=== PATIENT | male | born 1950 | race Caucasian/White ===

== ENCOUNTER 2018-10-13 08:10 | Emergency (ER) | payer MEDICARE, OTHER ==
[2018-10-13 09:13] LABS: Absolute Lymphocytes (CBC) 1.9 K/uL (0.7-4.9); Absolute Monocytes 1.1 K/uL (0.1-1.3); Absolute Neutrophil 10.8 K/uL (1.8-8.0); Basophils % 0.8 % (0-1.3); Eosinophils % 0.7 % (0-4.4); Hematocrit 42.1 % (39.6-49.0); Lymphocytes % 13.4 % (15.3-44.8); MPV 9.2 fL (7.6-11.3); Monocytes % 8.1 % (3.3-12.3); RBC Red Blood Cell Count 4.97 M/uL (4.33-5.43)
[2018-10-13] MEDS ORDERED: ALBUTEROL 2.5 MG/3 ML NEB SOL ONE (09:18)
[2018-10-13] MEDS ORDERED: METHYLPREDNISOLONE 125 MG INJ ONE (09:18)
[2018-10-13] MEDS ORDERED: KETOROLAC 30 MG/ML INJ ONE (09:18)
[2018-10-13 09:31] LABS: BUN Blood Urea Nitrogen 9 mg/dL (7-18); Bicarbonate 26 mmol/L (21-32); Glucose Level 84 mg/dL (74-106); Sodium Level 141 mmol/L (136-145); Troponin (Emerg Dept Use Only) < 0.02 ng/mL (0.0-0.045)
--- NOTE | 2018-10-13 09:42 | RAD REPORT ---
EXAM DESCRIPTION: Lilly Single View10/13/2018 9:27 am CLINICAL HISTORY: Shortness of breath COMPARISON: none FINDINGS: Lungs are hyperaerated. The lungs appear clear of acute infiltrate. The heart is normal size IMPRESSION: No acute abnormalities displayed
--- NOTE | 2018-10-13 10:22 | EDPHYS ---
Physician Documentation [facility] Name: Patel Villegas Age: 67 yrs Sex: Male : 1950 Arrival Date: 10/13/2018 Time: 08:18 Bed 7 Private MD: None, None ED Physician Juan Reagan HPI: 10/13 09:00 This 67 yrs old Male presents to ER via Ambulatory with complaints of rn Breathing Difficulty, Back Pain. 09:00 The patient has shortness of breath at rest. Onset: The symptoms/episode began/occurred rn this morning. Duration: The symptoms are continuous. The patient's shortness of breath is aggravated by coughing. Severity of symptoms: At their worst the symptoms were mild in the emergency department the symptoms are unchanged. The patient has experienced similar episodes in the past. Reports has asbestosis, + cough and chills with right painful lung since this morning, states has happened multiple times in past with lung infections, reports has only been admitted once for this and a lot worse that time. . Historical: - Allergies: 08:30 PENICILLINS; aa5 - Immunization history:: Adult Immunizations unknown. - Ebola Screening: : No symptoms or risks identified at this time. - Family history:: not pertinent. - Social history:: Smoking status: unknown. - Hospitalizations: : No recent hospitalization is reported. ROS: 09:00 Constitutional: + chills Eyes: Negative for injury, pain, redness, and discharge, Neck: rn Negative for injury, pain, and swelling, Cardiovascular: Negative for chest pain, palpitations, and edema, Respiratory: + sob and cough Abdomen/GI: Negative for abdominal pain, nausea, vomiting, diarrhea, and constipation, MS/Extremity: Negative for injury and deformity, Skin: Negative for injury, rash, and discoloration, Neuro: Negative for headache, weakness, numbness, tingling, and seizure. Exam: 09:00 Constitutional: This is a well developed, well nourished patient who is awake, alert, rn and in no acute distress. Head/Face: Normocephalic, atraumatic. Eyes: Pupils equal round and reactive to light, extra-ocular motions intact. Lids and lashes normal. Conjunctiva and sclera are non-icteric and not injected. Cornea within normal limits. Periorbital areas with no swelling, redness, or edema. ENT: MMM, no stridor Cardiovascular: Regular rate and rhythm, No pulse deficits. Respiratory: Clear to auscultation with diminished breath sounds bilateral bases, no retractions Abdomen/GI: soft, non-tender Skin: Warm, dry with normal turgor. Normal color with no rashes, no lesions, and no evidence of cellulitis. MS/ Extremity: Pulses equal, no cyanosis. Neurovascular intact. Full, normal range of motion. Equal circumference. Neuro: Awake and alert, GCS 15, oriented to person, place, time, and situation. Cranial nerves II-XII grossly intact. Motor strength 5/5 in all extremities. Sensory grossly intact. Cerebellar exam normal. Vital Signs: 08:31 BP 131 / 78; Pulse 56; Resp 22 S; Temp 98.3(O); Pulse Ox 100% on R/A; aa5 09:24 BP 120 / 72; Pulse 51; Resp 22; Pulse Ox 97% on Nebulizer Mask; ph 11:01 BP 122 / 68; Pulse 52; Resp 20; Temp 98.0; Pulse Ox 99% on R/A; ph MDM: 08:35 Patient medically screened. rn 10:20 Differential diagnosis: Bronchitis Chronic Obstructive Pulmonary Disease Myocardial rn Infarction pneumonia, Pneumothorax pulmonary edema. Data reviewed: vital signs, nurses notes, lab test result(s), EKG, radiologic studies, plain films, and as a result, I will discharge patient. Counseling: I had a detailed discussion with the patient and/or guardian regarding: the historical points, exam findings, and any diagnostic results supporting the discharge/admit diagnosis, lab results, radiology results, the need for outpatient follow up, to return to the emergency department if symptoms worsen or persist or if there are any questions or concerns that arise at home. Special discussion: I discussed with the patient/guardian in detail that at this point there is no indication for admission to the hospital. It is understood, however, that if the symptoms persist or worsen the patient needs to return immediately for re-evaluation. Based on the history and exam findings, there is no indication for further emergent testing or inpatient evaluation. I discussed with the patient/guardian the need to see the primary care provider for further evaluation of the symptoms. ED course: Oxygen 98%, will dc home with pcp f/u, abx, and pain meds. Likely early pneumonia.. 02/05 08:41 Order name: Blood Culture Adult (2) rn 10/13 08:41 Order name: BMP; Complete Time: 09:45 rn 10/13 08:41 Order name: XRAY CXR (1 view); Complete Time: 09:45 rn 10/13 08:41 Order name: CBC with Diff; Complete Time: 09:45 rn 10/13 08:41 Order name: Troponin (emerg Dept Use Only); Complete Time: 09:45 rn 10/13 08:41 Order name: Flu; Complete Time: 09:45 rn 10/13 08:41 Order name: EKG; Complete Time: 08:42 rn 10/13 08:41 Order name: Cardiac monitoring; Complete Time: 09:03 rn 10/13 08:41 Order name: EKG - Nurse/Tech; Complete Time: 17:40 rn 10/13 08:41 Order name: IV Saline Lock; Complete Time: 09:03 rn 10/13 08:41 Order name: Labs collected and sent; Complete Time: 09:04 rn 10/13 08:41 Order name: O2 Per Protocol; Complete Time: 09:04 rn 10/13 08:41 Order name: O2 Sat Monitoring; Complete Time: 09:04 rn Administered Medications: 09:17 Drug: TORadol 30 mg Route: IVP; Site: right forearm; ph 11:00 Follow up: Response: No adverse reaction; Pain is decreased ph 09:18 Drug: SOLU-Medrol 125 mg Route: IVP; Site: right forearm; ph 11:00 Follow up: Response: No adverse reaction ph 09:18 Drug: Albuterol 2.5 mg Route: Inhalation; ph 11:00 Follow up: Response: No adverse reaction ph Disposition: 10/13/18 10:21 Discharged to Home. Impression: Pleurisy, Bronchitis, not specified as acute or chronic. - Condition is Stable. - Discharge Instructions: Acute Bronchitis, Adult, Pleurisy, Cough, Adult. - Prescriptions for Prednisone 20 mg Oral Tablet - take 3 tablet by ORAL route once daily for 5 days; 15 tablet. Zithromax Z- Lawrence 250 mg Oral Tablet - take 1 tablet by ORAL route as directed for 5 days Day 1 - take two (2) tablets one time. Day 2, 3, 4 , 5 take one (1) tablet once daily.; 6 tablet. Tramadol 50 mg Oral Tablet - take 1 tablet by ORAL route every 8 hours as needed; 15 tablet. - Medication Reconciliation Form, Thank You Letter, Antibiotic Education, Prescription Opioid Use form. - Follow up: Private Physician; When: As needed; Reason: Recheck today's complaints, Re-evaluation by your physician. - Problem is new. - Symptoms have improved. Signatures: Dispatcher [employer] EDMS Juan Reagan MD MD rn Calderon, Audri, RN RN aa5 Tamiko Reyes RN RN ph Corrections: (The following items were deleted from the chart) 11:03 10:21 10/13/2018 10:21 Discharged to Home. Impression: Pleurisy; Bronchitis, not ph specified as acute or chronic. Condition is Stable. Forms are Medication Reconciliation Form, Thank You Letter, Antibiotic Education, Prescription Opioid Use. Follow up: Private Physician; When: As needed; Reason: Recheck today's complaints, Re-evaluation by your physician. Problem is new. Symptoms have improved. rn
--- NOTE | 2018-10-13 10:22 | ER ---
Nurse's Notes [facility] Name: Patel Villegas Age: 67 yrs Sex: Male : 1950 Arrival Date: 10/13/2018 Time: 08:18 Bed 7 Private MD: None, None Diagnosis: Pleurisy;Bronchitis, not specified as acute or chronic Presentation: 10/13 08:30 Presenting complaint: Patient states: SOB since today, chronic cough, and c/o of pain aa5 to "right lung". Pt states "I have asbestosis so I always have a cough but today I am more short of breath". 08:30 Transition of care: patient was not received from another setting of care. Onset of aa5 symptoms was October 13, 2018. Risk Assessment: Do you want to hurt yourself or someone else? Patient reports no desire to harm self or others. Initial Sepsis Screen: Does the patient meet any 2 criteria? No. Patient's initial sepsis screen is negative. Does the patient have a suspected source of infection? No. Patient's initial sepsis screen is negative. Care prior to arrival: None. 08:30 Method Of Arrival: Ambulatory aa5 08:30 Acuity: MEGAN 3 aa5 Historical: - Allergies: 08:30 PENICILLINS; aa5 - Immunization history:: Adult Immunizations unknown. - Ebola Screening: : No symptoms or risks identified at this time. - Family history:: not pertinent. - Social history:: Smoking status: unknown. - Hospitalizations: : No recent hospitalization is reported. Screenin:19 Abuse screen: Denies threats or abuse. Denies injuries from another. Nutritional ph screening: No deficits noted. Tuberculosis screening: No symptoms or risk factors identified. Fall Risk None identified. Assessment: 09:19 General: Appears in no apparent distress. uncomfortable, slender, well groomed, ph Behavior is calm, cooperative, appropriate for age, Reports chills for 1-2 days. Pain: Complains of pain in anterior aspect of right upper chest Pain radiates to back Quality of pain is described as sharp, stabbing, Aggravated by repositioning, Noted to be grimacing. Neuro: Level of Consciousness is awake, alert, obeys commands, Oriented to person, place, time, situation. Cardiovascular: Reports chest pain, shortness of breath, Capillary refill < 3 seconds in bilateral fingers Patient's skin is warm and dry. Rhythm is sinus bradycardia. Respiratory: Reports shortness of breath at rest Airway is patent Respiratory effort is even, unlabored, Respiratory pattern is regular, symmetrical, Breath sounds are coarse bilaterally. GI: Patient currently denies abdominal pain, diarrhea, nausea, vomiting. Derm: Skin is intact, is healthy with good turgor, Skin is pink, warm \\T\\ dry. Musculoskeletal: Circulation, motion, and sensation intact. Range of motion: intact in all extremities. 10:00 Reassessment: Patient appears in no apparent distress at this time. Patient and/or ph family updated on plan of care and expected duration. Pain level reassessed. Patient is alert, oriented x 3, equal unlabored respirations, skin warm/dry/pink. 11:00 Reassessment: Patient appears in no apparent distress at this time. Patient and/or ph family updated on plan of care and expected duration. Pain level reassessed. Patient is alert, oriented x 3, equal unlabored respirations, skin warm/dry/pink. Pt prescribed pain medication and antibiotics and d/c home Patient states feeling better. Vital Signs: 08:31 BP 131 / 78; Pulse 56; Resp 22 S; Temp 98.3(O); Pulse Ox 100% on R/A; aa5 09:24 BP 120 / 72; Pulse 51; Resp 22; Pulse Ox 97% on Nebulizer Mask; ph 11:01 BP 122 / 68; Pulse 52; Resp 20; Temp 98.0; Pulse Ox 99% on R/A; ph ED Course: 08:18 Patient arrived in ED. sb2 08:19 None, None is Private Physician. sb2 08:30 Arm band placed on Patient placed in an exam room, on a stretcher. aa5 08:30 Patient has correct armband on for positive identification. Placed in gown. Bed in low ph position. Call light in reach. Side rails up X 1. monitoring coordinator on. Pulse ox on. NIBP on. Warm blanket given. 08:35 Juan Reagan MD is Attending Physician. rn 08:35 Triage completed. aa5 08:44 Tamiko Reyes, SANDIE is Primary Nurse. ph 08:50 Inserted saline lock: 20 gauge forearm, using aseptic technique. Blood collected. ph 08:51 EKG done, by polysomnographic tech. reviewed by Juan Reagan MD. at1 09:10 Initial lab(s) drawn, by me, sent to lab. First set of blood cultures drawn by me, ph Second set of blood cultures drawn by me, Flu and/or RSV swab sent to lab. 09:27 XRAY CXR (1 view) In Process Unspecified. EDMS 11:01 No provider procedures requiring assistance completed. IV discontinued, intact, ph bleeding controlled, No redness/swelling at site. Pressure dressing applied. Administered Medications: 09:17 Drug: TORadol 30 mg Route: IVP; Site: right forearm; ph 11:00 Follow up: Response: No adverse reaction; Pain is decreased ph 09:18 Drug: SOLU-Medrol 125 mg Route: IVP; Site: right forearm; ph 11:00 Follow up: Response: No adverse reaction ph 09:18 Drug: Albuterol 2.5 mg Route: Inhalation; ph 11:00 Follow up: Response: No adverse reaction ph Outcome: 10:21 Discharge ordered by . rn 11:02 Discharged to home ambulatory. ph 11:02 Condition: good 11:02 Discharge instructions given to patient, Instructed on discharge instructions, follow up and referral plans. medication usage, Demonstrated understanding of instructions, follow-up care, medications, Prescriptions given X 3. 11:03 Patient left the ED. ph Signatures: Dispatcher [employer] EDTX Juan Reagan MD MD rn Calderon, Audri RN RN aa5 Nancy Solis, nurse plastics EKG Tat1 Tamiko Reyes RN RN ph Charisma Christian sb2 Corrections: (The following items were deleted from the chart) 08:37 08:30 Presenting complaint: Patient states: SOB since today, chronic cough, and c/o of aa5 pain to "right lung" aa5
--- NOTE | 2018-10-13 12:19 | EKG ---
Test Date: 2018-09-12 Test Time: 08:45:25 Electronic Technician: DAVID MEASUREMENT RESULTS: Intervals: Rate: 56 NC: 154 QRSD: 90 QT: 406 QTc: 391 Randolph: P: 60 NC: 154 QRS: 28 T: 60 INTERPRETIVE STATEMENTS: Sinus bradycardia Otherwise normal ECG No previous ECG available for comparison Electronically Signed On 10-13-18 12:18:45 VICE PRESIDENT OF SOFTWARE DEVELOPMENT by Jose Pérez
== END 2018-10-13 11:03 | disposition home or self-care (01) ==
LOC: ER 08:10
DX: J40 Bronchitis, not specified as acute or chronic (principal); R09.1 Pleurisy; Z88.0 Allergy status to penicillin
CPT/HCPCS: 36415; 71045; 80048; 84484; 85025; 87040 ×2; 87804 ×2; 93005; 96374; 96375; 99285; J2930

== ENCOUNTER 2018-12-03 10:57 | Emergency (ER) | payer MEDICARE ==
--- OUTSIDE RECORDS SUMMARY | 2018-12-03 11:02 | XMS REPORT ---
:1950 [facility] Address [address] [place] [address] Dr. Ponce [address] [place] [id number] Care Team Providers Name Role Phone Unavailable Unavailable Unavailable Problems This patient has no known problems. Allergies, Adverse Reactions, Alerts This patient has no known allergies or adverse reactions. Medications This patient has no known medications.
--- NOTE | 2018-12-03 11:52 | RAD REPORT ---
EXAM DESCRIPTION: Lilly Single View12/03/2018 11:45 am CLINICAL HISTORY: Chest pain COMPARISON: October 2018 FINDINGS: The lungs are hyperaerated. The lungs appear clear of acute infiltrate. The heart is normal size IMPRESSION: No acute abnormalities displayed
[2018-12-03] MEDS ORDERED: ALBUTEROL 2.5 MG/3 ML NEB SOL ONE (11:55)
[2018-12-03] MEDS ORDERED: predniSONE 20 MG TAB ONE (11:55)
[2018-12-03] MEDS ORDERED: IPRATROPIUM BROM 0.5MG/2.5ML ONE (11:55)
[2018-12-03 12:21] LABS: Absolute Lymphocytes (CBC) 2.2 K/uL (0.7-4.9); Absolute Monocytes 0.7 K/uL (0.1-1.3); Absolute Neutrophil 6.9 K/uL (1.8-8.0); Basophils % 0.7 % (0-1.3); Eosinophils % 0.5 % (0-4.4); Hematocrit 41.2 % (39.6-49.0); MPV 9.9 fL (7.6-11.3); Monocytes % 7.4 % (3.3-12.3); RBC Red Blood Cell Count 4.87 M/uL (4.33-5.43)
[2018-12-03 12:22] LABS: Protime INR 1.1
[2018-12-03 12:48] LABS: ALT/SGPT 32 U/L (12-78); AST/SGOT 35 U/L (15-37); Albumin 3.9 g/dL (3.4-5.0); Alkaline Phosphatase 93 U/L (45-117); BUN Blood Urea Nitrogen 15 mg/dL (7-18); Bicarbonate 25 mmol/L (21-32); Bilirubin Direct 0.2 mg/dL (0-0.2); Bilirubin Total 0.7 mg/dL (0.2-1.0); Glucose Level 98 mg/dL (74-106); Magnesium 2.1 mg/dL (1.8-2.4); NT PRO-BNP 55 pg/mL (<125); Potassium 3.9 mmol/L (3.5-5.1); Protein, Total 6.8 g/dL (6.4-8.2); Sodium Level 140 mmol/L (136-145); Troponin (Emerg Dept Use Only) < 0.02 ng/mL (0.0-0.045)
--- NOTE | 2018-12-03 13:12 | EDPHYS ---
Physician Documentation [facility] Name: Patel Villegas Age: 68 yrs Sex: Male : 1950 Arrival Date: 12/03/2018 Time: 10:58 Bed 15 Private MD: ED Physician Celio Burnett HPI: 12/03 11:28 This 68 yrs old Male presents to ER via EMS with complaints of Shortness Of pm1 Breath. 11:28 The patient has shortness of breath. Onset: The symptoms/episode began/occurred 3 pm1 year(s) ago, and became worse 3 day(s) ago. Duration: The symptoms are chronic, for 3 year(s). The patient's shortness of breath is aggravated by nothing, is alleviated by nebulizer treatment. Associated signs and symptoms: Pertinent positives: productive cough, lower anterior and posterior rib pain. Severity of symptoms: in the emergency department the symptoms are worse. The patient has experienced similar episodes in the past, chronically. Historical: - Allergies: 11:08 PENICILLINS; ph - PMHx: 11:08 asbestosis; Hernia; ph - PSHx: 11:08 Hernia repair; ph - Immunization history:: Adult Immunizations unknown. - Social history:: Smoking status: Patient/guardian denies using tobacco. - Ebola Screening: : No symptoms or risks identified at this time. ROS: 11:28 Constitutional: Negative for fever, chills, and weight loss, Eyes: Negative for injury, pm1 pain, redness, and discharge, ENT: Negative for injury, pain, and discharge, Neck: Negative for injury, pain, and swelling, Cardiovascular: Negative for chest pain, palpitations, and edema. 11:28 Abdomen/GI: Negative for abdominal pain, nausea, vomiting, diarrhea, and constipation, Back: Negative for injury and pain, : Negative for injury, bleeding, discharge, and swelling, MS/Extremity: Negative for injury and deformity, Skin: Negative for injury, rash, and discoloration, Neuro: Negative for headache, weakness, numbness, tingling, and seizure. 11:28 Respiratory: Positive for cough, shortness of breath. Exam: 11:27 Sinus bradycardia 55 BPM pm1 11:28 Constitutional: This is a well developed, well nourished patient who is awake, alert, pm1 and in no acute distress. Head/Face: Normocephalic, atraumatic. Eyes: Pupils equal round and reactive to light, extra-ocular motions intact. Lids and lashes normal. Conjunctiva and sclera are non-icteric and not injected. Cornea within normal limits. Periorbital areas with no swelling, redness, or edema. ENT: Nares patent. No nasal discharge, no septal abnormalities noted. Tympanic membranes are normal and external auditory canals are clear. Oropharynx with no redness, swelling, or masses, exudates, or evidence of obstruction, uvula midline. Mucous membranes moist. Neck: Trachea midline, no thyromegaly or masses palpated, and no cervical lymphadenopathy. Supple, full range of motion without nuchal rigidity, or vertebral point tenderness. No Meningismus. Chest/axilla: Normal chest wall appearance and motion. Nontender with no deformity. No lesions are appreciated. Cardiovascular: Regular rate and rhythm with a normal S1 and S2. No gallops, murmurs, or rubs. Normal PMI, no JVD. No pulse deficits. Respiratory: Lungs have equal breath sounds bilaterally, clear to auscultation and percussion. No rales, rhonchi or wheezes noted. No increased work of breathing, no retractions or nasal flaring. Abdomen/GI: Soft, non-tender, with normal bowel sounds. No distension or tympany. No guarding or rebound. No evidence of tenderness throughout. Back: No spinal tenderness. No costovertebral tenderness. Full range of motion. Skin: Warm, dry with normal turgor. Normal color with no rashes, no lesions, and no evidence of cellulitis. MS/ Extremity: Pulses equal, no cyanosis. Neurovascular intact. Full, normal range of motion. 11:28 Neuro: Orientation: is normal, Motor: is normal, moves all fours, Sensation: is normal, no obvious gross deficits. Vital Signs: 11:07 BP 120 / 83; Pulse 58; Resp 20; Temp 97.8; Pulse Ox 100% on R/A; Weight 68.04 kg; ph Height 5 ft. 9 in. (175.26 cm); Pain 8/10; 12:07 BP 116 / 74; Pulse 66; Resp 19; Pulse Ox 100% on R/A; rb1 13:00 BP 126 / 73; Pulse 70; Resp 19; Pulse Ox 95% on R/A; rb1 14:00 BP 112 / 77; Pulse 72; Resp 17; Pulse Ox 99% on R/A; Pain 4/10; rb1 11:07 Body Mass Index 22.15 (68.04 kg, 175.26 cm) ph MDM: 11:14 Patient medically screened. pm1 11:28 Data reviewed: vital signs. Data interpreted: Pulse oximetry: on room air is 100 %. pm1 Interpretation: normal. 13:10 Counseling: I had a detailed discussion with the patient and/or guardian regarding: the pm1 historical points, exam findings, and any diagnostic results supporting the discharge/admit diagnosis, lab results, radiology results, the need for outpatient follow up, for definitive care, a literary writer, to return to the emergency department if symptoms worsen or persist or if there are any questions or concerns that arise at home. 12/03 11:15 Order name: Basic Metabolic Panel; Complete Time: 13:10 pm12/03 11:15 Order name: CBC with Diff; Complete Time: 12:33 pm12/03 11:15 Order name: LFT's; Complete Time: 13:10 pm12/03 11:15 Order name: Magnesium; Complete Time: 13:10 pm12/03 11:15 Order name: NT PRO-BNP; Complete Time: 13:10 pm12/03 11:15 Order name: PT-INR; Complete Time: 12:33 pm12/03 11:15 Order name: Troponin (emerg Dept Use Only); Complete Time: 13:10 pm12/03 11:15 Order name: XRAY Chest (1 view); Complete Time: 11:53 pm12/03 11:15 Order name: EKG; Complete Time: 11:16 pm12/03 11:15 Order name: Cardiac monitoring; Complete Time: 11:20 pm12/03 11:15 Order name: EKG - Nurse/Tech; Complete Time: 11:20 pm12/03 11:24 Order name: Flu; Complete Time: 12:37 pm12/03 11:15 Order name: IV Saline Lock; Complete Time: 11:58 pm12/03 11:15 Order name: Labs collected and sent; Complete Time: 11:59 pm12/03 11:15 Order name: O2 Per Protocol; Complete Time: 11:20 pm1 12/03 11:15 Order name: O2 Sat Monitoring; Complete Time: 11:20 pm1 Administered Medications: 11:45 Drug: Albuterol - atroVENT (3:1) (2.5 mg - 0.5 mg) 3 ml Route: Nebulizer; rb1 12:30 Follow up: Response: No adverse reaction rb1 11:45 Drug: predniSONE 60 mg Route: PO; rb1 12:30 Follow up: Response: No adverse reaction rb1 Disposition: 15:03 Co-signature as Attending Physician, Celio Burnett MD I agree with the assessment and kdr plan of care. Disposition: 12/03/18 13:11 Discharged to Home. Impression: Pleurisy, Bronchitis, not specified as acute or chronic. - Condition is Stable. - Discharge Instructions: Acute Bronchitis, Adult, How to Use an Inhaler, Pleurisy. - Prescriptions for Zithromax Z- Lawrence 250 mg Oral Tablet - take 1 tablet by ORAL route as directed for 5 days Day 1 - take two (2) tablets one time. Day 2, 3, 4 , 5 take one (1) tablet once daily.; 6 tablet. Albuterol Sulfate 90 mcg/actuation - inhale 1-2 puff by INHALATION route every 4-6 hours; 1 Inhaler. Prednisone 20 mg Oral Tablet - take 3 tablet by ORAL route once daily for 5 days; 15 tablet. Tylenol- Codeine #3 300-30 mg Oral Tablet - take 2 tablets by ORAL route every 6 hours As needed; 20 tablet. - Medication Reconciliation Form, Thank You Letter, Antibiotic Education, Prescription Opioid Use form. - Follow up: Emergency Department; When: As needed; Reason: Worsening of condition. Follow up: Private Physician; When: 2 - 3 days; Reason: Recheck today's complaints, Continuance of care, Re-evaluation by your physician. - Problem is new. - Symptoms have improved. Signatures: Dispatcher [employer] EDMS Celio Burnett MD MD [facility] Tamiko Reyes RN RN ph Rehana Caraballo, RN RN rb1 Gabriel Malin, SUPERINTENDENT OIL FIELD DRILLING SUPERINTENDENT OIL FIELD DRILLING pm1 Corrections: (The following items were deleted from the chart) 13:12 13:11 12/03/2018 13:11 Discharged to Home. Impression: Bronchitis, not specified as pm1 acute or chronic. Condition is Stable. Forms are Medication Reconciliation Form, Thank You Letter, Antibiotic Education, Prescription Opioid Use. Follow up: Emergency Department; When: As needed; Reason: Worsening of condition. Follow up: Private Physician; When: 2 - 3 days; Reason: Recheck today's complaints, Continuance of care, Re-evaluation by your physician. Problem is new. Symptoms have improved. pm1 14:41 13:12 12/03/2018 13:11 Discharged to Home. Impression: PleurisyBronchitis, not rb1 specified as acute or chronic. Condition is Stable. Forms are Medication Reconciliation Form, Thank You Letter, Antibiotic Education, Prescription Opioid Use. Follow up: Emergency Department; When: As needed; Reason: Worsening of condition. Follow up: Private Physician; When: 2 - 3 days; Reason: Recheck today's complaints, Continuance of care, Re-evaluation by your physician. Problem is new. Symptoms have improved. pm1
--- NOTE | 2018-12-03 13:12 | ER ---
Nurse's Notes [facility] Name: Patel Villegas Age: 68 yrs Sex: Male : 1950 Arrival Date: 12/03/2018 Time: 10:58 Bed 15 Private MD: Diagnosis: Bronchitis, not specified as acute or chronic;Pleurisy Presentation: 12/03 11:03 Presenting complaint: EMS states: Pt hx of asbestosis, reports having chest pain x 2-3 ph months but states that pain became worse today, reports pain in R anterior rib area that radiates up to R chest, pain is reproducible w/ palpation and deep breathing, also c/o SOB, dizziness, and nausea, VSS en route, placed on O2 at 2L for comfort. Transition of care: patient was not received from another setting of care. Onset of symptoms was December 03, 2018. Risk Assessment: Do you want to hurt yourself or someone else? Patient reports no desire to harm self or others. Initial Sepsis Screen: Does the patient meet any 2 criteria? No. Patient's initial sepsis screen is negative. Does the patient have a suspected source of infection? No. Patient's initial sepsis screen is negative. Care prior to arrival: None. 11:03 Method Of Arrival: EMS: [facility] 11:03 Acuity: MEGAN 3 ph Triage Assessment: 11:00 Respiratory: Onset: The symptoms/episode began/occurred at an unknown time. the patient rb1 has mild shortness of breath. Historical: - Allergies: 11:08 PENICILLINS; ph - PMHx: 11:08 asbestosis; Hernia; ph - PSHx: 11:08 Hernia repair; ph - Immunization history:: Adult Immunizations unknown. - Social history:: Smoking status: Patient/guardian denies using tobacco. - Ebola Screening: : No symptoms or risks identified at this time. Screenin:08 Abuse screen: Denies threats or abuse. Denies injuries from another. Nutritional ph screening: No deficits noted. Tuberculosis screening: No symptoms or risk factors identified. Fall Risk None identified. Assessment: 11:00 General: Appears uncomfortable, Behavior is calm, cooperative, Reports chills for fever rb1 for. Pain: Complains of pain in ribs Pain currently is 8 out of 10 on a pain scale. Neuro: Level of Consciousness is awake, alert, obeys commands, Oriented to person, place, time, situation, Reports dizziness. Cardiovascular: Capillary refill < 3 seconds is brisk in bilateral fingers Rhythm is regular. Respiratory: Airway is patent Respiratory effort is even, labored, Respiratory pattern is regular, symmetrical. GI: Reports nausea. : No signs and/or symptoms were reported regarding the genitourinary system. Derm: Skin is pink, warm \T\ dry. 11:00 Respiratory: Breath sounds are clear bilaterally. rb1 12:00 Reassessment: Patient appears in no apparent distress at this time. No changes from rb1 previously documented assessment. 13:00 Reassessment: Patient appears in no apparent distress at this time. Patient and/or rb1 family updated on plan of care and expected duration. Pain level reassessed. Patient is alert, oriented x 3, equal unlabored respirations, skin warm/dry/pink. 14:00 Reassessment: Patient appears in no apparent distress at this time. No changes from rb1 previously documented assessment. Family at bedside. Discharge pending due to the provider needing to speak with the pt. Discharge papers haven not been printed at his time. 14:39 Reassessment: Provider at bedside speaking with the pt. rb1 Vital Signs: 11:07 BP 120 / 83; Pulse 58; Resp 20; Temp 97.8; Pulse Ox 100% on R/A; Weight 68.04 kg; ph Height 5 ft. 9 in. (175.26 cm); Pain 8/10; 12:07 BP 116 / 74; Pulse 66; Resp 19; Pulse Ox 100% on R/A; rb1 13:00 BP 126 / 73; Pulse 70; Resp 19; Pulse Ox 95% on R/A; rb1 14:00 BP 112 / 77; Pulse 72; Resp 17; Pulse Ox 99% on R/A; Pain 4/10; rb1 11:07 Body Mass Index 22.15 (68.04 kg, 175.26 cm) ph ED Course: 10:58 Patient arrived in ED. ss 11:00 Patient has correct armband on for positive identification. Placed in gown. Bed in low rb1 position. Call light in reach. Side rails up X 1. equipment validation specialist on. Pulse ox on. NIBP on. Warm blanket given. 11:06 Triage completed. ph 11:08 Arm band placed on Patient placed in an exam room, on a stretcher, on forest resources professor, ph on pulse oximetry. 11:09 Maintain EMS IV. Dressing intact. Good blood return noted. Site clean \T\ dry. Gauge \T\ ph site: 18 G LAC. 11:10 Gabriel Malin NP is PHCP. pm1 11:10 Celio Burnett MD is Attending Physician. pm1 11:16 Rehana Caraballo, RN is Primary Nurse. rb1 11:21 EKG done, by cell technician. reviewed by Gabriel Malin NP. at1 11:44 X-ray completed. Portable x-ray completed in exam room. Patient tolerated procedure jb2 well. 11:45 XRAY Chest (1 view) In Process Unspecified. EDMS 14:39 No provider procedures requiring assistance completed. IV discontinued, intact, rb1 bleeding controlled, No redness/swelling at site. Pressure dressing applied. Administered Medications: 11:45 Drug: Albuterol - atroVENT (3:1) (2.5 mg - 0.5 mg) 3 ml Route: Nebulizer; rb1 12:30 Follow up: Response: No adverse reaction rb1 11:45 Drug: predniSONE 60 mg Route: PO; rb1 12:30 Follow up: Response: No adverse reaction rb1 Outcome: 13:11 Discharge ordered by MD. pm1 14:39 Discharged to home ambulatory, with family. rb1 14:39 Condition: stable 14:39 Discharge instructions given to patient, Instructed on discharge instructions, follow up and referral plans. medication usage, Demonstrated understanding of instructions, follow-up care, medications, Prescriptions given X 4. 14:41 Patient left the ED. rb1 Signatures: Dispatcher [employer] EDMS Thiago Lipscomb jb2 Ashley Johnson RN RN Nancy Solis, pony ride attendant EKG Tat1 Tamiko Reyes RN RN ph Rehana Caraballo, SANDIE RN rb1 Gabriel Malin, LEOPOLDO HOURLY SHIFT pm1
--- NOTE | 2018-12-04 06:17 | EKG ---
Test Date: 2018-12-03 Test Time: 11:16:34 Cotton Dispatcher: DAVID MEASUREMENT RESULTS: Intervals: Rate: 55 HI: 162 QRSD: 92 QT: 444 QTc: 424 [place]: P: 64 HI: 162 QRS: 18 T: 61 INTERPRETIVE STATEMENTS: Sinus bradycardia Otherwise normal ECG Compared to ECG 10/13/2018 08:45:25 No significant changes Electronically Signed On 12-04-18 06:16:24 CDT by Jose Pérez
== END 2018-12-03 14:41 | disposition home or self-care (01) ==
LOC: ER 10:57
DX: J40 Bronchitis, not specified as acute or chronic (principal); R09.1 Pleurisy; Z88.0 Allergy status to penicillin
CPT/HCPCS: 36415; 71045; 80048; 80076; 83735; 83880; 84484; 85025; 85610; 87804; 93005; 94640; 99285; J7512